=== PATIENT | male | born 2000 | race Caucasian/White ===

== ENCOUNTER 2018-01-19 10:31 | Emergency (ER) | payer OTHER ==
[~2018-01-19] VITALS: Ht 180.3 cm; Wt 62.4 kg
[2018-01-19] MEDS ORDERED: MAALOX/HYOSCYAMINE/LIDOCAINE 45 ML BTL ONE (11:14)
[2018-01-19] MEDS ORDERED: MAALOX/HYOSCYAMINE/LIDOCAINE 45 ML BTL PO ONE (11:30)
[2018-01-19] MEDS ORDERED: SODIUM CHLORIDE 0.9% 1,000ML IVBOLUS ONE (13:00)
[2018-01-19 14:21] VITALS: BP 117/85
[2018-01-19] MEDS ORDERED: PROPOFOL 10 MG/ML, 20ML ONE ×2 (15:02→15:21)
[2018-01-19] MEDS ORDERED: PROPOFOL 10 MG/ML, 20ML IVPush ONE (15:30)
[2018-01-19] MEDS ORDERED: FAMOTIDINE 20 MG/2 ML IVPush ONE (16:30)
[2018-01-19] MEDS ORDERED: FAMOTIDINE 20 MG/2 ML ONE (17:11)
== END 2018-01-19 18:04 | disposition home or self-care (01) ==
LOC: ED 14:15
DX: T18.198A Other foreign object in esophagus causing other injury, initial encounter (principal); X58.XXXA Exposure to other specified factors, initial encounter; Y93.89 Activity, other specified; Y92.89 Other specified places as the place of occurrence of the external cause; Y99.8 Other external cause status
CPT/HCPCS: 43247; 71046; 74220; 93005; 96374; 99152; 99153; 99285; J2704; J7030; S0028

== ENCOUNTER 2018-09-02 23:41 | Emergency (ER) | payer OTHER ==
[~2018-09-02] VITALS: Ht 180.3 cm; Wt 65.0 kg
[2018-09-02 23:46] VITALS: BP 129/80
[2018-09-03] MEDS ORDERED: LIDOCAINE-MPF 1%, 5ML INFIL ONE
[2018-09-03] MEDS ORDERED: LIDOCAINE-MPF 1%, 5ML ONE (00:05)
[2018-09-03] MEDS ORDERED: DIPH,PERTUSS(ACELL),TET VAC/PF 0.5 ML IM-VACC ONE ×2 (00:07)
--- NOTE | 2018-09-03 00:12 | NUR ---
REPORT GIVEN TO JESSICA SIMPSON
[2018-09-03] MEDS ORDERED: BACITRACIN ZINC OINT 500U/GM, 0.9 GM ONE (00:26)
== END 2018-09-03 01:18 | disposition home or self-care (01) ==
LOC: ED 09-03 01:13
DX: S61.212A Laceration without foreign body of right middle finger without damage to nail, initial encounter (principal); W26.0XXA Contact with knife, initial encounter; Y93.89 Activity, other specified; Y92.009 Unspecified place in unspecified non-institutional (private) residence as the place of occurrence of the external cause; Y99.8 Other external cause status
CPT/HCPCS: 12041; 90471; 90715